=== PATIENT | female | born 1945 | race Caucasian/White ===

== ENCOUNTER 2018-04-28 05:45 | Emergency (ER) | payer OTHER, MEDICAID ==
[2018-04-28] MEDS ORDERED: HYDROmorphONE 0.5 MG/0.5 ML SYG IV (05:55)
[2018-04-28] MEDS: LACTATED RINGER'S 1,000 ML IV (05:55)
[2018-04-28] MEDS ORDERED: ONDANSETRON 4 MG INJ IV (05:55)
[2018-04-28] MEDS: SOD CHLORIDE 0.9% 1,000 ML IV (07:28)
[2018-04-28] MEDS: CEFEPIME 1GM/50 ML (PMX) 50 ML IVPB (07:28)
[2018-04-28 07:35] LABS: ADD MAN DIFF? NO
[2018-04-28 07:40] LABS: BASOPHILS % 0.6 % (0.0-2.0); EOSINOPHILS # 0.2 10^3/ul (0.0-0.5); HEMATOCRIT 29.2 % (37.0-47.0); HEMOGLOBIN 9.2 g/dl (12.0-16.0); LYMPHOCYTES # 1.4 10^3/ul (0.8-2.9); LYMPHOCYTES % 26.3 % (15.0-51.0); MEAN CORPUSCULAR HEMOGLOBIN 27.4 pg (29.0-33.0); MEAN CORPUSCULAR HGB CONC 31.5 g/dl (32.0-37.0); MEAN CORPUSCULAR VOLUME 86.9 fl (82.0-101.0); MEAN PLATELET VOLUME 9.2 fl (7.4-10.4); MONOCYTE # 0.5 10^3/ul (0.3-0.9); MONOCYTES % 9.9 % (0.0-11.0); NEUTROPHIL # 3.1 10^3/ul (1.6-7.5); PLATELET COUNT 182 10^3/UL (140-415); RED BLOOD COUNT 3.36 10^6/ul (4.20-5.40); RED CELL DISTRIBUTION WIDTH 14.9 % (11.5-14.5)
[2018-04-28 07:40] LABS: WHITE BLOOD COUNT 5.2 10^3/ul (4.8-10.8)
[2018-04-28 08:07] LABS: ALANINE AMINOTRANSFERASE 15 IU/L (13-69); ALBUMIN 3.5 g/dl (3.3-4.9); ALKALINE PHOSPHATASE 100 IU/L (42-121); ANION GAP 18 (8-16); ASPARTATE AMINO TRANSFERASE 12 IU/L (15-46); BILIRUBIN,INDIRECT 0.2 mg/dl (0-1.1); BILIRUBIN,TOTAL 0.2 mg/dl (0.2-1.3); BLOOD UREA NITROGEN 63 mg/dl (7-20); CALCIUM 9.1 mg/dl (8.4-10.2); CARBON DIOXIDE 23 mmol/L (21-31); CHLORIDE 107 mmol/L (97-110); CREATININE 3.16 mg/dl (0.44-1.00); GLUCOSE 162 mg/dl (70-220); LIPASE 70 U/L (23-300); POTASSIUM 4.8 mmol/L (3.5-5.1); SODIUM 143 mmol/L (135-144)
[2018-04-28 08:09] LABS: ADD UMIC YES; UR ASCORBIC ACID NEGATIVE (NEGATIVE); UR BILIRUBIN (Dip) NEGATIVE (NEGATIVE); UR BLOOD (Dip) 1+ mg/dL (NEGATIVE); UR CLARITY TURBID (CLEAR); UR COLOR AMBER (YELLOW); UR GLUCOSE (Dip) NEGATIVE (NEGATIVE); UR KETONES (Dip) NEGATIVE (NEGATIVE); UR LEUKOCYTE ESTERASE (Dip) 3+ Leu/ul (NEGATIVE); UR NITRITE (Dip) NEGATIVE (NEGATIVE); UR RBC 16 /HPF (0-5); UR SPECIFIC GRAVITY (Dip) 1.012 (1.003-1.030); UR SQUAMOUS EPITHELIAL CELL FEW /HPF (FEW); UR TOTAL PROTEIN (Dip) 2+ mg/dl (NEGATIVE); UR UROBILINOGEN (Dip) NEGATIVE (NEGATIVE); UR WBC > 182 /HPF (0-5)
[2018-04-28 08:21] LABS: LACTIC ACID 1.2 mmol/L (0.5-2.0)
[2018-04-28 08:23] LABS: TROPONIN-I < 0.012 ng/ml (0.000-0.120)
[2018-04-28 08:39] LABS: INR 0.97
== END 2018-04-28 10:15 | disposition short-term general hospital (02) ==
LOC: E/R 05:45
DX: N30.00 Acute cystitis without hematuria (principal); E86.0 Dehydration; N17.9 Acute kidney failure, unspecified; E11.9 Type 2 diabetes mellitus without complications; I50.9 Heart failure, unspecified; J44.9 Chronic obstructive pulmonary disease, unspecified; E03.9 Hypothyroidism, unspecified; E66.9 Obesity, unspecified; Z87.891 Personal history of nicotine dependence; Z68.41 Body mass index [BMI] 40.0-44.9, adult
CPT/HCPCS: 71045; 80053; 81001; 83605; 83690; 84484; 85025; 85610; 85730; 87040; 87086; 93005; 96365; 96366; 99285-25